=== PATIENT | female | born 1950 | race Caucasian/White ===

== ENCOUNTER 2023-11-29 09:27 | Emergency (ER) | payer MEDICARE, OTHER, SELFPAY ==
[2023-11-29 09:38] VITALS: BP 124/46; PULSE 58; RESP 16; TEMP 36.6; O2SAT 100; BMI 24.1
--- NOTE | 2023-11-29 09:43 | EDS_ITS ---
HPI HPI - GI History of Present Illness Chief Complaint: Abd Pain Detail of Chief Complaint: No abdominal pain. Nausea, vomiting and diarrhea since 11 PM last night. Informant: patient and spouse/S.O. Abdominal Pain/Flank Pain Onset: Today and Yesterday Context: Sudden Onset Timing: Continuous Quality: Cramping Current Severity: Mild Nausea/Vomiting/Emesis GI Symptom: Positive for Nausea and Vomiting Onset: Today Severity: Moderate Diarrhea/Melena/Hematochezia GI Symptom: Positive for Diarrhea Onset: Today and Yesterday Stool Quality: Positive for Watery Severity: Moderate Associated Symptoms Associated Symptoms: Negative for Dysuria, Frequency, Hematuria or Urgency Narrative Narrative: 73-year-old female history of mitral valve prolapse. Has had nausea, vomiting diarrhea since 11 PM last night. No fever positive chills. Very little oral intake. Really denies abdominal pain except for some mild cramping. Prior hysterectomy. No dysuria. Prior similar symptoms: Yes Recent Illness/Hospitalization: No PFSH PFSH Medical History (Updated 11/29/23 @ 11:[address] Elias Lester MD) Carpal tunnel syndrome Home Medications ondansetron 4 mg disintegrating tablet 4 mg PO Q6H PRN nausea and vomiting #10 tabs 11/29/23 [Rx Last Taken Unknown] Allergy/AdvReac Type Severity Reaction Status Date / Time acetaminophen [From Vicodin] Allergy Mild Vomiting Verified 11/29/23 10:07 caffeine [From Cafergot] Allergy Mild tachycardia Verified 11/29/23 10:07 daprodustat Allergy Mild rash Verified 11/29/23 10:07 ergotamine [From Cafergot] Allergy Mild tachycardia Verified 11/29/23 10:07 hydrocodone [From Vicodin] Allergy Mild Vomiting Verified 11/29/23 10:07 Surgical History (Updated 11/29/23 @ 10:14 by Margaret Sherwood) H/O: hysterectomy History of bunionectomy History of partial knee replacement S/P left knee arthroscopy Social History Smoking Status: Never smoker ROS ROS ED ROS Narrative Nausea, vomiting and diarrhea today. Review of Systems ROS Unobtainable: Denies due to encephalopathy Constitutional Constitutional ED: Reports chills; Denies fever(s) ENT ENT ED: Denies ear pain Cardiovascular Cardiovascular: Denies chest pain or palpitations Respiratory/Chest Respiratory/Chest: Denies cough or dyspnea Gastrointestinal Gastrointestinal: Reports diarrhea, nausea and vomiting; Denies abdominal pain, constipation or melena Genitourinary Genitourinary ED: Denies dysuria or hematuria Musculoskeletal Musculoskeletal: Denies arthralgias, back pain, myalgias or neck pain Integumentary Denies abscess, Abrasions or rash Neurologic Neurologic: Denies headache(s) Psychiatric Psychiatric: Denies anxiety or depression Endocrine Endocrinology: Denies polydipsia Hematologic/Lymphatic Hematologic/Lymphatic: Denies easy bleeding, easy bruising or lymphadenopathy Allergic/Immunologic Allergic/Immunologic ED: Denies mouth swelling, tongue swelling or urticaria EXAM Physical Exam Narrative Exam Narrative: 73-year-old female vital signs are stable afebrile. Pulse ox 100% on room air no signs hypoxia. at bedside. HEENT exam pupils round react to light. No facial droop. Dry mucous membranes. Neck nontender no lymphadenopathy. Lungs clear to auscultation bilaterally. Heart regular rhythm rate about 60 no murmur. Chest wall and ribs nontender. Back nontender. Abdomen soft, nontender, nondistended, normal bowel sounds without any peritoneal signs. Right upper and lower quadrants unremarkable. No distention. Soft. Moving all 4 extremities. Nontender no edema. Normal strength. Normal range of motion. Neurologically she is awake alert no focal motor deficits. Const Vital Signs: 11/29/23 09:38 11/29/23 10:29 Temperature 97.8 F Temperature Source Oral Pulse Rate 58 L 59 L Respiratory Rate 16 16 Blood Pressure 124/46 H 92/79 Blood Pressure Mean 72 83 Pulse Ox 100 100 Oxygen Delivery Method Room Air Room Air Positive well nourished and well developed; Negative for obese, cachectic, contractures or unkempt General Appearance ED: well developed and NAD; Negative for unkempt, cachectic, contractures or pallor Nutritional Appearance: Negative for cachectic or obese HEENT Reports dry mucous membranes; Denies moist mucous membranes normocephalic and atraumatic; Negative for trauma or tenderness Mouth ED: Yes dry mucous membranes Mouth: dry mucous membranes Eyes PERRL and EOMs intact bilaterally General Eye ED: Negative for pale conjunctiva or scleral icterus Neck no lymphadenopathy, supple and no JVD General: Negative for tenderness Lymph Lymphatic: Negative for other Resp normal respiratory effort and clear to auscultation bilaterally Effort and Inspection: Negative for respiratory distress Auscultation: Negative for rales, rhonchi, wheezes or diminished lung sounds Cardio regular rate, regular rhythm, S1 normal heart sound, S2 normal heart sound and no murmurs Rate: Negative for bradycardia or tachycardic Rhythm: Negative for abnormal rhythm GI non-tender, non-distended and no masses Inspection: Negative for abdominal distention Auscultation: normoactive bowel sounds Palpation: soft; Negative for tender, guarding, rigid, hernia, mass, pulsatile mass or rebound tenderness present Back/Spine no CVA tenderness General Back: Negative for CVA tenderness Cervical Spine: Negative for cervical spine tenderness Thoracic Spine / Upper Back: Negative for thoracic spinal tenderness Lumbar Spine / Lower Back: Negative for lumbar spinal tenderness Coccyx: Negative for other Extremity full ROM General Extremety ED: Negative for edema or tenderness General Extremity: Negative for edema Neuro CN's II-XII intact bilaterally, moves all extremities and no sensory deficits noted Sensorium / Orientation: alert, oriented to person, oriented to place and oriented to time; Negative for orientation impaired, confused, lethargic or stuporous Motor Exam: strength 5/5 throughout; Negative for general weakness or strength abnormal Psych mental status grossly normal and thought process normal Appearance: Negative for unkempt Attitude: No agitated Mood & Affect: Negative for depressed, anxious or tearful Skin no wounds General Skin Exam: Negative for jaundice or pallor Lesions: no lesions Rashes: no rashes Trauma: Negative for abrasion Nails: Negative for discolored MDM MDM MDM Narrative Medical decision making narrative: 73-year-old female very healthy woman with nausea vomiting diarrhea since 11 PM last night. Clinically and exam fink in the story with a sounds like a viral gastroenteritis. She was treated with IV fluids for dehydration, Zofran. And a chemistry panel will be obtained. On exam she has no abdominal pain. No obstruction. No signs of appendicitis or cholecystitis. Repeat exam at 10:15 AM patient is shown some improvement. She is already had a liter of normal saline. We are going to give her a second liter. Second dose of Zofran. Better nausea started improved. Abdomen remains nondistended and nontender. Repeat exam at 11:53 AM patient doing much better. Nausea is resolved. Abdomen remains completely benign and nontender. Nondistended. Clinically I think this is a viral gastroenteritis. Patient is never had a labs done here she and I discussed her BUN and creatinine. Her actually on their way to drive to [place]. He stopped to see the kids locally last night. They are going to go back to the [place] area they live in [place] and follow-up with her doctor. They will delay their trip at this time. She will be discharged home with Zofran. History & Record Review Discussion w/independent historian: Patient and Family Additional record(s) reviewed:: No prior records Lab Data Attestation: I reviewed the patient's lab results. Lab results narrative: Chemistries show gap 7. BUN and creatinine at 25 and 1.56 I think is a secondary to dehydration. I do not have any old labs for comparison I do not know if she has chronic renal insufficiency. No history of that. Glucose 132. Labs: Laboratory Results - last 24 hr 11/29/23 09:55 Sodium 139 Potassium 4.2 Chloride 108 H Carbon Dioxide 24.0 Anion Gap 7 BUN 25 H Creatinine 1.56 H Estim Creat Clear Calc 28.47 Est GFR (MDRD) Af Amer 42 L Est GFR (MDRD) Non-Af 35 L BUN/Creatinine Ratio 16.0 Glucose 132 H Calcium 10.1 Discharge Plan Triage Chief Complaint: Abd Pain ED Provider: Elias Lester Dx/Rx/DC Orders Clinical Impression: Nausea, vomiting, and diarrhea, Acute dehydration, Viral gastroenteritis Instructions: ED Dehydration (Adult), ED Gastroenteritis, Viral (Adult) Prescriptions: New ondansetron 4 mg tablet,disintegrating 4 mg PO Q6H PRN (Reason: nausea and vomiting) Qty: 10 0RF Primary Care Provider: Care Physician,No Primary Referrals: Care Physician,No Primary [Primary Care Provider] - Activity Restrictions/Additional Instructions: Plenty of fluids and rest. Slowly increase your diet as tolerated. If you are unable to keep fluids down or you are feeling worse need to follow-up with your local emergency department. Zofran as needed for nausea. Imodium for diarrhea if it continues into tomorrow. Follow-up with your doctor to ensure you are improving. Your creatinine was elevated today at 1.56. Most likely from dehydration. That this needs to be rechecked. I do not have any old labs on you to compare it to. Disposition Disposition: Home, Self Care
[2023-11-29] MEDS: Ondansetron 4 MG/2 ML Vial IV ×2 (09:50→10:42)
[2023-11-29] MEDS: 0.9% Normal Saline (1000mL) 1,000 ML 1000 ML IV (09:50)
[2023-11-29 10:20] LABS: Anion Gap 7 (5-15); BUN 25 mg/dL (7-18); Calcium,Total 10.1 mg/dL (8.5-10.1); Chloride 108 mmol/L (98-107); Creatinine, Serum 1.56 mg/dL (0.55-1.02); EST Glomerular Filtration Rate 35 mL/min (>60); Est Glom Filt Rate - Afr Amer 42 mL/min (>60); Estimated Creatinine Clearance 28.47 ml/min; Glucose 132 mg/dL (74-106); Potassium 4.2 mmol/L (3.5-5.1); Sodium Level 139 mmol/L (136-145)
[2023-11-29 10:29] VITALS: BP 92/79; PULSE 59; RESP 16; O2SAT 100
[2023-11-29] MEDS: 0.9% Normal Saline (1000mL) 1,000 ML 999 ML IV (10:43)
[2023-11-29 11:55] VITALS: BP 122/62; PULSE 78; RESP 16; TEMP 36.3; O2SAT 98
[2023-11-29] MEDS: Loperamide 2 MG Capsule PO (13:06)
[2023-11-29 13:07] VITALS: BP 125/59; PULSE 81; RESP 16; O2SAT 98
== END 2023-11-29 13:07 | disposition home or self-care (01) ==
PROVIDERS: Emergency Provider Emergency Medicine; Visit Provider Emergency Medicine
DX: A08.4 Viral intestinal infection, unspecified (principal); E86.0 Dehydration
CPT/HCPCS: 80048; 96361; 96374; 96376; 99283; J7030; J2405